=== PATIENT | female | born 1985 | race Hispanic/Latino ===

== ENCOUNTER 2018-01-01 08:43 | Inpatient (IN) | payer OTHER ==
[2018-01-01] MEDS: Lactated Ringer's 1,000 ML IV SCH ×3 (09:20→23:25)
[2018-01-01 09:46] VITALS: BMI 47.2
[2018-01-01] MEDS ORDERED: Promethazine HCl 25 MG/ML VIAL IM PRN ×3 (10:48→19:48)
[2018-01-01] MEDS ORDERED: Ondansetron HCl/PF 4 MG/2 ML Vial IVP PRN ×3 (10:48→19:48)
[2018-01-01] MEDS ORDERED: Bicitra 30 ML UDCUP PO SCH ×2 (11:00→15:30)
[2018-01-01] MEDS ORDERED: CEFAZOLIN/Water 2 GM/20 ML SYRINGE SLOW IVP SCH ×2 (11:00→15:45)
[2018-01-01] MEDS ORDERED: Ondansetron HCl/PF 4 MG/2 ML Vial ONE ×2 (11:23→12:50)
[2018-01-01] MEDS ORDERED: ePHEDrine/0.9% NaCl/PF SYRINGE 50 mg/10 ml ONE ×2 (11:23→12:50)
[2018-01-01] MEDS ORDERED: PHENYLEPHRINE-NS 100 MCG/ML 10 ML SYRINGE ONE ×2 (11:23→12:50)
[2018-01-01] MEDS ORDERED: Ketorolac Tromethamine 30 MG/ML VIAL ONE ×2 (11:23→14:18)
[2018-01-01] MEDS ORDERED: Dexamethasone 20 MG/5 ML VIAL ONE (11:23)
[2018-01-01 11:49] LABS: Syphilis Antibody Nonreactive (Nonreactive); Syphilis Antibody Index 0.03 S/CO (<1.00 Non-Reactive)
[2018-01-01 11:50] LABS: HBSAg Index 0.19 S/CO (0-0.99); Hep B Surf Ag Non-Reactive S/CO (NonReactive)
[2018-01-01 12:46] LABS: Hemoglobin 12.2 g/dL (12.0-16.0); Mean Corpuscular HGB CONC 33.5 g/dL (32.0-36.0); Mean Corpuscular Hemoglobin 29.4 pg (27.0-31.0); Mean Corpuscular Volume 87.9 fL (78.0-98.0); Mean Platelet Volume 8.7 fL (7.4-10.4); Platelet Count 194 thou/uL (130-400); RBC Distribution Width 14.1 % (11.5-14.5); Red Blood Cell (RBC) Count 4.15 mill/uL (4.20-5.40); White Blood Cell (WBC) Count 10.4 thou/uL (4.8-10.8)
[2018-01-01] MEDS ORDERED: Fentanyl 100 MCG/2 ML VIAL ONE (12:49)
[2018-01-01] MEDS ORDERED: Morphine PF 1 MG/ML SYR ONE (12:49)
[2018-01-01] MEDS ORDERED: Dexamethasone 4 mg/ml Vial ONE (12:50)
[2018-01-01] MEDS ORDERED: Bupivacaine 0.75% W/DEXTROSE 8.25% 2 ML AMP ONE (12:50)
[2018-01-01] MEDS ORDERED: Lidocaine 1% PF 5 ML VIAL ONE ×2 (12:50→13:00)
[2018-01-01] MEDS ORDERED: Oxytocin 10 UNITS/ML VIAL ONE ×2 (12:50→13:53)
[2018-01-01] MEDS ORDERED: Bisacodyl 10 MG SUPP PR PRN (14:58)
[2018-01-01] MEDS ORDERED: Lanolin Ointment 7 GM TUBE TOP PRN (14:58)
[2018-01-01] MEDS ORDERED: Varicella virus, LIVE 0.5 ML VIAL SC ONE (14:58)
[2018-01-01] MEDS ORDERED: Adacel (T-DAP) 0.5 ML VIAL IM ONE (14:58)
[2018-01-01] MEDS ORDERED: diphenhydrAMINE 25 MG CAP PO PRN (14:58)
[2018-01-01] MEDS ORDERED: CEFAZOLIN 2 GM in Sodium Chloride 0.9% 100 ML IVPB SCH (15:30)
[2018-01-01] MEDS: Ibuprofen 800 MG TAB PO SCH ×2 (17:22→23:01)
[2018-01-01] MEDS: Ferrous Sulfate 325 MG TAB PO SCH (17:22)
[2018-01-01] MEDS ORDERED: diphenhydrAMINE 50 MG/ML VIAL IVP PRN (19:48)
[2018-01-01] MEDS ORDERED: Eucerin (Mineral Oil/Petrolatum,White) 30 gm Jar TOP PRN (19:48)
[2018-01-01] MEDS ORDERED: Naloxone HCl 0.4 mg/ml Vial IVP PRN ×2 (19:48)
[2018-01-01] MEDS ORDERED: Naloxone HCl 0.4 mg/ml Vial IV PRN (19:48)
[2018-01-01] MEDS ORDERED: Promethazine HCl 25 MG SUPP PR PRN (19:48)
[2018-01-01] MEDS ORDERED: Acetaminophen 1,000 MG in Premix Bag 1 BAG IVPB PRN (19:49)
[2018-01-01] MEDS ORDERED: Communication Order-Pharmacy FS SCH (20:00)
[2018-01-01] MEDS: Docusate Calcium (SURFAK) 240 MG CAP PO SCH (23:01)
[2018-01-01] MEDS: Ketorolac Tromethamine 30 MG/ML VIAL IVP SCH (23:27)
[2018-01-02] MEDS: Ibuprofen 800 MG TAB PO SCH ×3 (04:15→22:15)
[2018-01-02] MEDS: HYDROcodone/Acetaminophen 5/325 mg Tablet PO PRN ×3 (04:23→17:56)
[2018-01-02] MEDS: Ketorolac Tromethamine 30 MG/ML VIAL IVP SCH ×3 (05:17→09:22)
[2018-01-02 05:48] LABS: Hemoglobin 10.4 g/dL (12.0-16.0); Mean Corpuscular Volume 88.3 fL (78.0-98.0); Mean Platelet Volume 8.3 fL (7.4-10.4); Platelet Count 166 thou/uL (130-400); RBC Distribution Width 13.9 % (11.5-14.5); Red Blood Cell (RBC) Count 3.47 mill/uL (4.20-5.40); White Blood Cell (WBC) Count 11.5 thou/uL (4.8-10.8)
[2018-01-02] MEDS: Lactated Ringer's 1,000 ML IV SCH ×2 (07:09→07:10)
[2018-01-02] MEDS: Ferrous Sulfate 325 MG TAB PO SCH (07:09)
[2018-01-02] MEDS: Prenatal Vitamin 1 TAB PO SCH (08:15)
[2018-01-02] MEDS: Docusate Calcium (SURFAK) 240 MG CAP PO SCH ×2 (08:15→22:15)
[2018-01-02] MEDS: Zolpidem Tartrate 5 MG TAB PO PRN (22:15)
[2018-01-03] MEDS: Lactated Ringer's 1,000 ML IV SCH ×5 (00:29→23:51)
[2018-01-03] MEDS: Ketorolac Tromethamine 30 MG/ML VIAL IVP SCH ×3 (01:04→19:17)
[2018-01-03] MEDS: HYDROcodone/Acetaminophen 5/325 mg Tablet PO PRN ×4 (01:54→18:36)
[2018-01-03] MEDS: Ibuprofen 800 MG TAB PO SCH ×3 (06:36→21:37)
[2018-01-03] MEDS: Ferrous Sulfate 325 MG TAB PO SCH ×2 (09:21→18:17)
[2018-01-03] MEDS: Docusate Calcium (SURFAK) 240 MG CAP PO SCH ×2 (09:22→21:36)
[2018-01-03] MEDS: Prenatal Vitamin 1 TAB PO SCH (09:22)
[2018-01-03] MEDS: Zolpidem Tartrate 5 MG TAB PO PRN (21:41)
[2018-01-03 22:16] VITALS: TEMP 98.1
[2018-01-04] MEDS: Ibuprofen 800 MG TAB PO SCH (07:55)
[2018-01-04] MEDS: Docusate Calcium (SURFAK) 240 MG CAP PO SCH (07:55)
[2018-01-04] MEDS: Prenatal Vitamin 1 TAB PO SCH (07:55)
[2018-01-04] MEDS: HYDROcodone/Acetaminophen 5/325 mg Tablet PO PRN ×2 (07:56→13:59)
[2018-01-04 09:06] VITALS: BP 157/76
--- NOTE | 2018-01-05 14:11 | OP ---
PREOPERATIVE DIAGNOSES: 1. Intrauterine at 39 weeks and 0 days with a history of previous section, declined trial of labor after section. 2. Gestational hypertension. 3. Obesity. POSTOPERATIVE DIAGNOSES: 1. Intrauterine at 39 weeks and 0 days with a history of previous section, declined trial of labor after section. 2. Gestational hypertension. 3. Obesity. PROCEDURES: 1. Repeat low-transverse section. 2. Myomectomy x1 myoma. ESTIMATED BLOOD LOSS DURING THIS CASE: Quantitative blood loss 920 mL. COMPLICATIONS: None. FINDINGS: Normal-appearing uterus, tubes, ovaries. Uterus had at least two small subserosal lesions, which appeared suspicious and may most likely represent small uterine myomas. The largest of these was sampled and excised as a specimen, sent to pathology for permanent section. DETAILS OF THE PROCEDURE: The patient was consented and taken back to the operating room where spinal anesthesia was found to be adequate. She was then prepped and draped in the normal sterile fashion. A time out was performed by the entire operative team. The incision was then marked with a marking pen tested using sharp pickups. An incision was then made with a scalpel. The incision was carried through the adipose tissue down to the underlying rectus fascia using both sharp dissection as well as cautery. Once the fascia was identified, it was incised in the midline and then the fascial incision was carried through in both lateral directions using sharp as well as cautery dissection techniques. Next, the superior aspect of the rectus fascia was grasped with 2 Heber clamps which was tented up and the rectus muscles were dissected off using blunt dissection as well as cautery dissection. Similarly, the inferior aspect of the fascial incision was grasped with 2 Heber clamps, tented up and the rectus muscles were dissected off bluntly as well as sharply. Next, the rectus muscles were in the midline and the peritoneum identified. The peritoneum was then carefully grasped with two hemostats and entered sharply. The peritoneal incision was extended superiorly and inferiorly and bladder blade was placed in the lower abdomen. At this point, the uterus was identified and the bladder flap was then developed using pickups with teeth as well as Metzenbaum scissors in both lateral directions. The bladder flap was then dissected downwards using the fiberglass dowel drawing operator's finger as well as Metzenbaum scissors. The bladder blade was replaced. The lower uterine segment was then identified and entered sharply using a clean scalpel. The uterine incision was then dissected downwards until thin layer of muscle remained and this was entered bluntly using a hemostat to avoid any injury to the baby. The uterine incision was then stretched using two fingers in both lateral directions. An amniotomy was performed artificially using a hemostat and the baby was delivered using fundal pressure in a gentle fashion. Once out, the baby's mouth and nose were bulb suctioned, cord clamped and cut, and the baby was handed to waiting attendants. Next, the uterus was exteriorized, cleared of all clots and debris and the uterine incision was repaired with #1 Monocryl in a running locking fashion. A second suture of the same type was used to obtain complete hemostasis at the uterine incision. The bladder flap was reapproximated using 3-0 Monocryl. Next, patient's left and right adnexa were inspected and appeared to be within normal limits. The posterior cul-de-sac was blotted dry and hemostasis assured. One more look at the uterine incision demonstrated hemostasis. Following closure of the bladder flap, the uterus was inspected and appeared to have at least two subserosal lesions consistent with uterine fibroids, the largest of these looked quite unusual and was excised and removed using Bovie cautery. Hemostasis from this site was assured prior to continuation of the surgery. The specimen was labeled possible uterine myoma and sent to Pathology for permanent section. Next, the uterus was replaced back within the abdomen. The peritoneum was reapproximated using 2-0 Monocryl without difficulty. The rectus muscles were then allowed to come back together and 0 chromic was used to aid in reapproximation of the muscle as necessary. The rectus fascia was then reapproximated in a running fashion using 0 Vicryl suture. The adipose tissue was then examined and appeared to be well approximated without any obvious separations. Finally, the skin was reapproximated with 3-0 Monocryl on a Gee needle without difficulty and Dermabond adhesive was applied to the skin. Once the glue was dry, the drapes were removed and the patient was transferred to an ambulatory bed where she was taken to recovery awake and in stable condition. Sponge, lap, and needle counts were correct x3. MTDD
== END 2018-01-04 14:15 | disposition home or self-care (01) | DRG 765 ==
LOC: L&D 08:43 → 3SW 16:48
PROVIDERS: ADMIT Obstetrics & Gynecology; ATTEND Obstetrics & Gynecology
PROC: 10D00Z1 Extraction of Products of Conception, Low, Open Approach (ICD-10-PCS; principal; 2018-01-01)
PROC: 0UB90ZZ Excision of Uterus, Open Approach (ICD-10-PCS; 2018-01-01)
PROC: 3E0234Z Introduction of Serum, Toxoid and Vaccine into Muscle, Percutaneous Approach (ICD-10-PCS; 2018-01-01)
DX: O34.219 Maternal care for unspecified type scar from previous cesarean delivery (principal); Z68.42 Body mass index [BMI] 45.0-49.9, adult; Z3A.39 39 weeks gestation of pregnancy; Z37.0 Single live birth; O13.3 Gestational [pregnancy-induced] hypertension without significant proteinuria, third trimester; O99.213 Obesity complicating pregnancy, third trimester; E66.01 Morbid (severe) obesity due to excess calories; O99.333 Smoking (tobacco) complicating pregnancy, third trimester; Z23 Encounter for immunization
CPT/HCPCS: 36415; 51702; 85027; 86780; 86850; 86900; 86901; 87340; 88305; 90715; J1100; J1885; J2001; J2274; J2405; J2590; J3010; J3490

== ENCOUNTER 2019-10-06 | Inpatient (IN) | payer OTHER | END 2019-10-10 15:44 | disposition home or self-care (01) | DRG 788 | PROVIDERS: ADMIT Obstetrics & Gynecology | PROC: 10D00Z1 Extraction of Products of Conception, Low, Open Approach (ICD-10-PCS; principal; 2019-10-06) | PROC: 10907ZC Drainage of Amniotic Fluid, Therapeutic from Products of Conception, Via Natural or Artificial Opening (ICD-10-PCS; 2019-10-06) | DX: O34.211 Maternal care for low transverse scar from previous cesarean delivery (principal); Z3A.39 39 weeks gestation of pregnancy; Z37.0 Single live birth; O99.214 Obesity complicating childbirth; E66.01 Morbid (severe) obesity due to excess calories ==

== ENCOUNTER 2022-06-10 09:11 | Outpatient (CLI) | payer BC ==
[2022-06-10 09:54] LABS: #Monocytes 0.5 10x3/uL (0.0-1.1); #Neutrophils 10.1 10x3/uL (1.5-8.4); %Basophils 0.2 % (0.0-2.0); %Lymphocytes 13.7 % (18.0-47.0); %Monocytes 4.1 % (0.0-10.0); %Neutrophils 81.7 % (40.0-75.0); Mean Corpuscular HGB CONC 33.6 g/dL (32.0-36.0); Mean Corpuscular Hemoglobin 29.6 pg (27.0-33.0); Mean Corpuscular Volume 88.2 fl (81.6-98.3); Mean Platelet Volume 10.2 fl (7.4-10.4); Platelet Count 271 10x3/uL (150-450); RBC Distribution Width 12.5 % (11.5-14.5); Red Blood Cell (RBC) Count 4.73 10x6/uL (3.90-5.03); White Blood Cell (WBC) Count 12.4 10x3/uL (3.5-10.5)
[2022-06-10 10:34] LABS: BHCG - Serum Negative (NEGATIVE); Pregs Control Background? CLEAR/WHITE (CLR/WHITE); Pregs Control Bar Appear? YES (CONTROL BAR)
== END 2022-06-10 09:12 | disposition home or self-care (01) ==
LOC: LABBT 09:11
PROVIDERS: ATTEND Orthopaedic Surgery
DX: Z01.812 Encounter for preprocedural laboratory examination (principal); M67.432 Ganglion, left wrist
CPT/HCPCS: 84703; 85025

== ENCOUNTER 2022-06-13 07:20 | Day surgery (SDC) | payer BC ==
[2022-06-11 15:45] VITALS: BMI 40.3
[2022-06-13] MEDS ORDERED: Midazolam HCl 2 mg/2 ml Vial ONE ×2 (08:53→09:20)
[2022-06-13] MEDS ORDERED: EPINEPHrine 1 MG/ML AMP ONE (09:18)
[2022-06-13] MEDS ORDERED: Lidocaine 1% (PF) 30 ML VIAL ONE (09:18)
[2022-06-13] MEDS ORDERED: fentaNYL PF 100 MCG/2 ML SYRINGE ONE (09:20)
[2022-06-13] MEDS ORDERED: Sodium Chloride 0.9% 100 ML ONE (09:20)
[2022-06-13] MEDS ORDERED: CEFAZOLIN 2 GM VIAL ONE (09:20)
== END 2022-06-13 11:32 | disposition home or self-care (01) ==
LOC: SDC 07:20
PROVIDERS: ATTEND Orthopaedic Surgery
PROC: 0RBP0ZZ Excision of Left Wrist Joint, Open Approach (ICD-10-PCS; principal; 2022-06-13)
DX: M67.432 Ganglion, left wrist (principal); Z79.899 Other long term (current) drug therapy
CPT/HCPCS: 88304; J0171; J2001; J2250; J3490